=== PATIENT | male | born 1960 | race Two or more races ===

== ENCOUNTER 2025-04-09 10:09 | Emergency (ER) | payer OTHER ==
[~2025-04-09] VITALS: Ht 162.6 cm; Wt 113.4 kg
[2025-04-09] MEDS ORDERED: DEPAKOTE ER250 MG PO (10:37)
[2025-04-09] MEDS ORDERED: COZAAR50 MG PO (10:37)
[2025-04-09] MEDS ORDERED: LAMOTRIGINE25 MG PO (10:37)
[2025-04-09] MEDS ORDERED: MONTELUKAST SODI4 M1 PO (10:38)
[2025-04-09] MEDS ORDERED: KEPPRA100 MG/1 M PO (10:38)
[2025-04-09] MEDS ORDERED: FAMOTIDINE/PF 20 MG in 0.9 % SODIUM CHLORIDE 8 ML IV PUSH ONE (11:00)
[2025-04-09] MEDS ORDERED: 0.9 % SODIUM CHLORIDE 1,000 ML IV ONE (11:00)
[2025-04-09] MEDS ORDERED: ENALAPRILAT DIHYDRATE 1.25 MG/ML VIAL IV ONE ×2 (11:00→11:51)
[2025-04-09] MEDS ORDERED: MECLIZINE HCL 25 MG TABLET PO ONE ×2 (11:00→11:51)
[2025-04-09] MEDS ORDERED: ACETAMINOPHEN 500 MG GEL..CAP PO ONE ×2 (11:00→11:50)
[2025-04-09] MEDS ORDERED: FAMOTIDINE/PF 20 MG/2 ML VIAL ONE (11:51)
[2025-04-09 12:11] LABS: INR 1.04
[2025-04-09 12:34] LABS: ALT/SGPT 13.0 U/L (12-78); AST/SGOT 10.0 U/L (15-37); BILIRUBIN TOTAL 0.63 mg/dL (0.3-1.2); BUN CREA RATIO 9.0 (7.0-25.0); CREATININE SERUM 2.06 mg/dL (0.70-1.30); GFR 32.88; GLOBULINA 3.3 G/DL (2.4-3.5); GLUCOSE FASTING 98.0 mg/dL (65-100); OSMOLALITY SERUM 272.0 MOSM/KG (275-295)
[2025-04-09 13:14] LABS: URINE APPEARANCE Clear; URINE BILIRRUBIN Negative (NEGATIVE); URINE BLOOD Moderate; URINE COLOR Yellow; URINE GLUCOSE Negative (NEGATIVE); URINE KETONE Trace (NEGATIVE); URINE LEUKOCYTE Negative; URINE NITRATE Negative; URINE PROTEIN 30 (NEGATIVE); URINE UROBILINOGEN 1.0 E.U./dl
[2025-04-09 13:18] LABS: URINE BACTERIA 697.1 uL (0.0-1933); URINE EPITHELIAL CELLS 25.9 uL (0.0-38.8); URINE RBC 107.7 uL (0.0-20.8); URINE WBC 11.8 uL (0.0-23.2)
[2025-04-09 13:24] LABS: URINE CAST 0.87 uL (0.0-1.40)
[2025-04-09 14:44] LABS: BASO % 0.3 % (0.1-1.2); EOS # 0.04 (0.04-0.54); EOS % 0.4 % (0.7-7.0); LYMPH # 1.46 (1.18-3.74); LYMPH % 16.3 % (19.3-53.1); MEAN PLATELET VOLUME 8.80 fl (9.4-12.4); MONO # 1.12 (0.24-0.82); NEUT # 6.27 (1.56-6.13); NEUT % 69.8 % (34.0-71.1); RED CELL DISTRIBUTION WIDTH 13.0 % (11.6-14.4)
[2025-04-09 14:49] LABS: MONO % 12.5 % (4.7-12.5)
[2025-04-09] MEDS ORDERED: ANTIVERT25 M2 PO (15:17)
== END 2025-04-09 15:38 | disposition home or self-care (01) ==
LOC: ER 10:09
PROVIDERS: General Practice
DX: R42 Dizziness and giddiness (principal); R00.2 Palpitations; R51.9 Headache, unspecified; I10 Essential (primary) hypertension; Z88.5 Allergy status to narcotic agent; Z88.6 Allergy status to analgesic agent; Z91.041 Radiographic dye allergy status
CPT/HCPCS: 36415; 71046; 93005; 96365; 96366; 99283; J3490 ×2; J7030